=== PATIENT | female | born 1950 | race Caucasian/White ===

== ENCOUNTER 2016-08-07 02:21 | Inpatient (IN) ==
[2016-08-01 12:44] LABS: URINE MICRO REVIEW NEEDED? NO; URINE SOURCE CLEAN CATCH
--- NOTE | 2016-08-01 12:56 | EKG Report ---
Test Performed on : 08/01/2016 12:44:41 PM Test Reason : JOINT CAMP Blood Pressure : / mmHG Vent. Rate : 059 BPM Atrial Rate : 059 BPM P-R Int : 180 ms QRS Dur : 076 ms QT Int : 430 ms P-R-T Axes : 070 055 048 degrees QTc Int : 425 ms Sinus bradycardia. Otherwise normal ECG When compared with ECG of 03-MAR-2016 13:22, Questionable change in QRS axis Nonspecific T wave abnormality has replaced inverted T waves in Inferior leads Confirmed by Vashti HARLEY, Danyel Lerma ([id number]) on 08/02/2016 6:25:57 PM
[2016-08-01 12:59] LABS: MANUAL DIFF NEEDED? NO
[2016-08-01 13:26] LABS: BILIRUBIN URINE NEGATIVE (NEGATIVE); BLOOD URINE NEGATIVE (NEGATIVE); COLOR STRAW; GLUCOSE URINE NEGATIVE (NEGATIVE); LEUKOCYTES URINE NEGATIVE (NEGATIVE); NITRITE URINE NEGATIVE (NEGATIVE); PH URINE 5.5; PROTEIN URINE NEGATIVE (NEGATIVE); SP GRAVITY URINE 1.003; TURBIDITY URINE CLEAR (CLEAR); UR EPITHELIAL CELLS <10 /HPF (<10); URINE BACTERIA NEGATIVE /HPF; URINE RBC <10 /HPF (<10); URINE WBC <10 /HPF (<10); UROBILINOGEN URINE NORMAL (NORMAL)
[2016-08-01 13:37] LABS: BASO% 0.8 % (0.0-0.8); EOS# 0.21 X1000 (0.0-0.7); EOS% 3.3 % (0.0-10.0); HEMATOCRIT 37.7 % (37.0-47.0); HEMOGLOBIN 12.3 g/dL (12.0-16.0); LYMPH# 1.95 X1000 (1.2-3.4); LYMPH% 30.8 % (20.5-51.1); MCH 31.7 PG (27-31); MCHC 32.6 g/dL (33-37); MCV 97.2 FL (81-99); MONO# 0.46 X1000 (0.11-0.59); MONO% 7.3 % (1.7-9.3); NEUT% 57.8 % (42.2-75.2); PLT 245 X1000 (130-400); RBC 3.88 XMIL (4.2-5.4)
[2016-08-01 13:47] LABS: INR 0.96; PTT 23.6 Seconds (22.0-36.0)
[2016-08-01 14:23] LABS: AGAP 13; BUN 10 mg/dL (8-22); CALCIUM 9.2 mg/dL (8.8-10.2); CHLORIDE 100 mmol/L (98-107); COSMO 276; POTASSIUM 3.4 mmol/L (3.5-5.1); SODIUM 139 mmol/L (136-145); TCO2 26 mmol/L (25-35)
[2016-08-07] MEDS ORDERED: NEOSPORIN G.U. IRRIGANT ONE (10:38)
[2016-08-07] MEDS ORDERED: TRANSDERM-SCOP ONE (10:44)
[2016-08-07] MEDS ORDERED: REGLAN ONE (10:44)
[2016-08-07] MEDS ORDERED: LYRICA ONE (10:44)
[2016-08-07] MEDS ORDERED: COLACE ONE (10:44)
[2016-08-07] MEDS ORDERED: PEPCID ONE (10:44)
[2016-08-07] MEDS ORDERED: VANCOMYCIN 1 GM/NS 1 GM/250 ML IVPB ONE (10:45)
[2016-08-07] MEDS ORDERED: LR 1,000 ML ONE (10:45)
[2016-08-07] MEDS ORDERED: CELEBREX ONE (10:45)
[2016-08-07] MEDS ORDERED: TORADOL ONE (11:04)
[2016-08-07] MEDS ORDERED: DURAMORPH ONE (11:04)
[2016-08-07] MEDS ORDERED: SODIUM CHLORIDE 0.9% ONE (11:05)
[2016-08-07] MEDS ORDERED: EXPAREL 1.3% ONE (11:05)
[2016-08-07] MEDS ORDERED: CYKLOKAPRON 1,000 MG/NS 1,000 MG/100 ML IVPB ONE (11:05)
[2016-08-07] MEDS ORDERED: MARCAINE 0.25% PF/EPI 1:200,000 ONE (11:05)
[2016-08-07] MEDS ORDERED: CLAVE SECONDARY SET 11953 ONE (11:05)
[2016-08-07] MEDS ORDERED: VERSED ONE (11:49)
[2016-08-07 12:44] LABS: URINE MICRO REVIEW NEEDED? NO; URINE SOURCE CATH
[2016-08-07 12:52] LABS: BILIRUBIN URINE NEGATIVE (NEGATIVE); BLOOD URINE NEGATIVE (NEGATIVE); COLOR YELLOW; GLUCOSE URINE NEGATIVE (NEGATIVE); LEUKOCYTES URINE NEGATIVE (NEGATIVE); NITRITE URINE NEGATIVE (NEGATIVE); PROTEIN URINE TRACE mg/dL (NEGATIVE); TURBIDITY URINE CLEAR (CLEAR); UROBILINOGEN URINE NORMAL (NORMAL)
[2016-08-07 12:54] LABS: UR EPITHELIAL CELLS <10 /HPF (<10); URINE BACTERIA NEGATIVE /HPF; URINE RBC <10 /HPF (<10); URINE WBC <10 /HPF (<10)
[2016-08-07] MEDS ORDERED: NS 1,000 ML ONE (14:26)
--- NOTE | 2016-08-07 14:54 | HISTORY AND PHYSICAL ---
CHIEF COMPLAINT: Left hip pain. HISTORY OF PRESENT ILLNESS: Ms Tay is a 66-year-old white female with a history of left hip pain for several months. 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 She will be admitted to the hospital today for a left total knee arthroplasty. PAST MEDICAL HISTORY: Cerebrovascular accident, hypertension, dysrhythmia, acid reflux, kidney stones, osteoarthritis and anxiety. SURGICAL HISTORY: Tonsils and adenoids, hysterectomy, right shoulder surgery, bilateral thumb surgery, right groin hernia repair, colon resection and lumbar fusion. FAMILY HISTORY: Noncontributory. SOCIAL HISTORY: She is single, denies using tobacco, denies using alcohol. CURRENT MEDICATIONS: At home are lisinopril 5 mg p.o. daily, Elavil 10 mg p.o. at bedtime, Paxil 20 mg p.o. at bedtime, folic acid 1 mg p.o. daily, Probiotic 1 p.o. daily, aspirin 325 mg p.o. daily, Cholecalciferol 5000 units p.o. daily, Plavix 75 mg p.o. daily, Cardizem-LA 180 mg p.o. daily, Zantac 300 mg p.o. daily. ALLERGIES: To penicillin, codeine and Phenergan. PRIMARY CARE PROVIDER: Dr. Hinkle. REVIEW OF SYSTEMS: Constitutional: The patient denies any head, ears, eyes, nose, or throat problems. Patient denies any current cardiac problems, reports having dysrhythmia in the past. Denies any chest pain, shortness of breath currently. Pulmonary: Patient denies any coughing or wheezing or any chronic lung disease. Gastrointestinal: Patient denies any chronic gastrointestinal problems other than occasional diarrhea since her colon surgery. Genitourinary: Patient denies any problem with urinary tract infection or any other genitourinary problems. Neurological: Patient reports good sensation. Denies any numbness or tingling. Musculoskeletal: Patient reports having left hip pain. PHYSICAL EXAMINATION: GENERAL: The patient is awake, sitting up in bed. She is articulate and able answer questions appropriately. HEENT: Head is normocephalic, atraumatic. Pupils equal, round, reactive to light. Nares patent. Throat without exudate. CARDIAC: S1-S2 auscultated. No murmur, rub or gallop noted. LUNGS: Clear to auscultation bilaterally in all lung gonsalez. GASTROINTESTINAL: Abdomen is soft, nontender, nondistended. Bowel sounds present in all quadrants. GENITOURINARY: Not examined. NEUROLOGICAL: Patient has good sensation to dull touch in all extremities. Cranial nerves 2-12 grossly intact. MUSCULOSKELETAL: Physical examination of the left hip reveals pain with palpation of left hip as well as passive range of motion of the left lower extremity. IMPRESSION: Osteonecrosis left femur. PLAN: Left total hip arthroplasty. The risks, benefits, and alternatives of the surgery were discussed with the patient including risk of anesthesia, bleeding, damage to blood vessels, nerves, tendons, ligaments and other imponderables and the patient agrees to proceed with the surgery at this time. Dictated by LISA Swenson for Jake Gonsalez MD cc: LISA Swenson MD
[2016-08-07] MEDS: DILAUDID ONE ×2 (14:56→15:04)
--- NOTE | 2016-08-07 16:43 | PROGRESS NOTE ---
DATE: 08/07/2016 Ms. Tay is seen for a postop after anterior hip replacement. She is afebrile with stable vital signs. She is alert and oriented. She is moving all lower extremities well. Her bandage is intact with no signs of redness or warmth. There is good capillary refill. Vital signs are stable. cc: Jake Gonsalez MD
[2016-08-07] MEDS: CELEBREX PO SCH (16:49)
[2016-08-07] MEDS: CARDIZEM LA PO SCH (16:49)
[2016-08-07] MEDS: ZANTAC PO SCH (16:51)
[2016-08-07] MEDS: VITAMIN D PO SCH (16:51)
[2016-08-07] MEDS: PLAVIX PO SCH (16:52)
[2016-08-07] MEDS: CULTURELLE PO SCH (16:52)
[2016-08-07] MEDS: PRINIVIL PO SCH (16:52)
[2016-08-07] MEDS: FOLIC ACID PO SCH (16:52)
[2016-08-07] MEDS: COLACE PO SCH ×2 (16:53→20:58)
--- NOTE | 2016-08-07 17:30 | OPERATIVE NOTE ---
PROCEDURE DATE: 08/07/2016 PREOPERATIVE DIAGNOSIS: Avascular necrosis of the hip, left. POSTOPERATIVE DIAGNOSIS: Avascular necrosis of the hip, left. PROCEDURE: Left anterior hip replacement. SURGEON: Brandy Gonsalez MD ACCOUNT MANAGER TRAINEE: LISA Swenson ANESTHESIA: General. COMPLICATION: None. PROCEDURE IN DETAIL: A 66-year-old female presents for left anterior hip replacement. Risks, benefits, and no guarantees were discussed, and the patient is willing to proceed. The patient was taken to the operating room and satisfactory anesthesia was obtained. She was placed on the Emerson table and the left hip prepped and draped in the usual sterile fashion. After ensuring a proper time out, an anterior approach to the left hip was undertaken through roughly an 8-10 cm incision starting a cm distal and lateral to the anterior superior iliac spine. The fascia of the tensor fascia was then incised and blunt dissection along the inner membrane to the tensor fascia undertaken to the anterior hip capsule. Cobra retractors were placed over the superior and inferior aspect of the femoral neck and a capsulotomy incision made. Femoral neck osteotomy was made roughly 10 mm above the lesser trochanter and the femoral head and neck removed. Sequential reaming of the acetabulum was undertaken up to a 51 reamer. A [employer] [place] DuoFix BENOIT coated shell size 52 outer diameter was then impacted in the acetabulum under fluoroscopic guidance in roughly 10-15 degrees of anteversion and 45 degrees of abduction. This was fully seated with secure press-fit fixation. A 20 mm screw was placed in the 12 o'clock position of the cup for additional security. A 0 degree polyethylene liner to accommodate a 36 head was then impacted into the acetabular shell with secure fixation. After securing the acetabular component, the leg was brought into extension and external rotation utilizing the Emerson table to expose the proximal femur. Sequential broaching with the Effcon MXR Corail broach system was then undertaken up to a size 11 stem. This had good axial and rotational stability. A standard neck geometry with a 1.5 head revealed good stability and hoahaoism of leg length. The broach was then removed and a size 11 standard neck Corail was impacted into the proximal femur with secure axial and rotational stability. A 36 ceramic head with a 1.5 mm neck taper was impacted onto this and the hip reduced. Final range of motion revealed no anterior instability in extension or in neutral position. Good hoahaoism of leg length using fluoroscopic guidance was achieved. The wound was then copiously irrigated with irrigant. A Hemovac drain was placed. The joint capsule and skin was injected with Exparel for pain management. The fascia of the tensor was then closed over the drain with a running 0 Vicryl. The subcutaneous with 2-0 Vicryl, and the skin with skin dhiraj. Sterile dressings completed the closure and the patient was recovered from anesthesia and transferred to the recovery room in stable condition. No intraoperative complications were noted. Instrument count and sponge count was correct at the time of closure. cc: Jake Gonsalez MD
[2016-08-07] MEDS: NS 1,000 ML IV SCH (17:42)
[2016-08-07] MEDS ORDERED: CYKLOKAPRON 1,000 MG in NS 100 ML IV ONE (18:00)
[2016-08-07] MEDS ORDERED: DIPRIVAN 1% ONE (18:14)
[2016-08-07] MEDS ORDERED: FENTANYL ONE (18:15)
[2016-08-07] MEDS ORDERED: MORPHINE ONE (18:16)
[2016-08-07] MEDS: NORCO-10 PO PRN (20:58)
[2016-08-07] MEDS: PAXIL PO SCH (20:58)
[2016-08-07] MEDS: ELAVIL PO SCH (20:59)
[2016-08-07] MEDS: PERIDEX MT SCH (21:40)
[2016-08-07] MEDS: MORPHINE IV PRN (22:24)
[2016-08-07] MEDS ORDERED: VANCOMYCIN 1 GM/NS 1 GM/250 ML IVPB IV ONE (23:45)
[2016-08-08] MEDS: MORPHINE IV PRN (03:36)
[2016-08-08] MEDS: NS 1,000 ML IV SCH (05:10)
[2016-08-08 05:47] LABS: HEMATOCRIT 30.3 % (37.0-47.0); HEMOGLOBIN 9.5 g/dL (12.0-16.0)
[2016-08-08 06:02] LABS: AGAP 14; BUN 14 mg/dL (8-22); CALCIUM 8.3 mg/dL (8.8-10.2); CHLORIDE 105 mmol/L (98-107); COSMO 282; POTASSIUM 4.5 mmol/L (3.5-5.1); SODIUM 140 mmol/L (136-145); TCO2 21 mmol/L (25-35)
[2016-08-08] MEDS: XARELTO PO SCH (06:17)
[2016-08-08] MEDS: CARDIZEM LA PO SCH (08:18)
[2016-08-08] MEDS: ZANTAC PO SCH (08:18)
[2016-08-08] MEDS: PRINIVIL PO SCH (08:18)
[2016-08-08] MEDS: VITAMIN D PO SCH (08:18)
[2016-08-08] MEDS: CULTURELLE PO SCH (08:18)
[2016-08-08] MEDS: CELEBREX PO SCH (08:18)
[2016-08-08] MEDS: PLAVIX PO SCH (08:18)
[2016-08-08] MEDS: FOLIC ACID PO SCH (08:18)
[2016-08-08] MEDS: NORCO-10 PO PRN ×4 (08:19→22:34)
[2016-08-08] MEDS: PERIDEX MT SCH ×2 (08:19→19:53)
[2016-08-08] MEDS: COLACE PO SCH ×2 (08:20→19:53)
[2016-08-08] MEDS ORDERED: OFIRMEV 1000 MG/ISOTONIC SOLN 1,000 MG/100 ML BOTTLE ONE (09:16)
[2016-08-08] MEDS ORDERED: DECADRON ONE (09:16)
[2016-08-08] MEDS ORDERED: XYLOCAINE-MPF 2% ONE (09:16)
[2016-08-08] MEDS ORDERED: QUELICIN (DOSE) ONE (09:16)
[2016-08-08] MEDS ORDERED: ZOFRAN ONE (09:16)
[2016-08-08] MEDS ORDERED: LR 1,000 ML ONE (09:16)
[2016-08-08] MEDS: BENADRYL PO PRN (12:24)
[2016-08-08] MEDS: ELAVIL PO SCH (19:53)
[2016-08-08] MEDS: PAXIL PO SCH (19:53)
[2016-08-09] MEDS: COLACE PO SCH ×2 (00:16→08:16)
[2016-08-09] MEDS: PERIDEX MT SCH ×3 (00:16→19:42)
[2016-08-09] MEDS: PAXIL PO SCH ×2 (00:16→19:42)
[2016-08-09] MEDS: ELAVIL PO SCH ×2 (00:16→19:42)
[2016-08-09] MEDS: MORPHINE IV PRN ×2 (02:36→19:41)
[2016-08-09] MEDS: BENADRYL PO PRN ×3 (04:21→19:41)
[2016-08-09] MEDS: NORCO-10 PO PRN ×4 (05:34→23:49)
[2016-08-09] MEDS: XARELTO PO SCH (05:35)
[2016-08-09 05:37] LABS: HEMATOCRIT 28.6 % (37.0-47.0)
[2016-08-09] MEDS: PLAVIX PO SCH (08:15)
[2016-08-09] MEDS: ZANTAC PO SCH (08:15)
[2016-08-09] MEDS: VITAMIN D PO SCH (08:15)
[2016-08-09] MEDS: FOLIC ACID PO SCH (08:15)
[2016-08-09] MEDS: CARDIZEM LA PO SCH (08:15)
[2016-08-09] MEDS: CULTURELLE PO SCH (08:15)
[2016-08-09] MEDS: PRINIVIL PO SCH (08:15)
[2016-08-09] MEDS: CELEBREX PO SCH (08:15)
[2016-08-10] MEDS: ELAVIL PO SCH (01:14)
[2016-08-10] MEDS: COLACE PO SCH ×2 (01:14→08:12)
[2016-08-10] MEDS: PAXIL PO SCH (01:14)
[2016-08-10] MEDS: PERIDEX MT SCH ×2 (01:15→08:12)
[2016-08-10] MEDS: BENADRYL PO PRN ×2 (03:33→09:20)
[2016-08-10] MEDS: NORCO-10 PO PRN ×2 (03:33→08:13)
[2016-08-10] MEDS: XARELTO PO SCH (05:06)
[2016-08-10 05:57] LABS: HEMATOCRIT 29.1 % (37.0-47.0); HEMOGLOBIN 9.2 g/dL (12.0-16.0)
--- NOTE | 2016-08-10 07:26 | DISCHARGE SUMMARY ---
ADMISSION DATE: 08/07/2016 DISCHARGE DATE: 08/10/2016 ADMITTING DIAGNOSIS: Degenerative joint disease of the left hip. ADDITIONAL DIAGNOSES: 1. Hypertension. 2. History of a cerebrovascular accident. 3. Dysrhythmia. 4. Acid reflux. 5. Kidney stones. 6. Anxiety. DISCHARGE DIAGNOSES: 1. Degenerative joint disease of the left hip. 2. Hypertension. 3. History of a cerebrovascular accident. 4. Dysrhythmia. 5. Acid reflux. 6. Kidney stones. 7. Anxiety. ADMITTING HISTORY AND HOSPITAL COURSE: Ms. Tay is a 66-year-old white female with a history of left hip pain. She was admitted to the hospital on 08/07/2016 for a total hip arthroplasty. After her surgery, she remained afebrile. Her vital signs remained stable. There are no signs or symptoms of infection or DVT. Her hemoglobin was 9.2, and her hematocrit is 29.1 today. She is currently ambulating about 250 feet with a front wheel walker. We plan to discharge her today to inpatient rehab facility. DISCHARGE MEDICATIONS: 1. Lisinopril 5 mg p.o. daily. 2. Elavil 10 mg p.o. at bedtime. 3. Paxil 20 mg p.o. at bedtime. 4. Folic acid 1 mg p.o. daily. 5. Probiotic 1 p.o. daily. 6. Vitamin D3 5000 units p.o. daily. 7. Plavix 75 mg p.o. daily. 8. Cardizem-LA 180 mg p.o. daily. 9. Zantac 300 mg p.o. daily. 10. Deputy 10 1-2 p.o. q.4-6 hours p.r.n. for pain. 11. Aspirin 352 mg p.o. daily. DISCHARGE INSTRUCTIONS: Ms. Tay is to be discharged today to a rehab facility , where she will begin her physical therapy regimen. If she has any worsening signs or symptoms , she will need to contact us immediately. I discussed with her that she will be discharged with a pain medication and for anticoagulant we will continue her asa and plavix. She understands the indications and the possible side effects of those. She will need to follow up with Dr. Gonsalez in 10 days, or when she discharges from the rehab facility to have her dhiraj removed. If she stays in the rehab facility for 10 days, the rehab will remove her dhiraj for her. Dictated by LISA Swenson for Jake Gonsalez MD cc: LISA Swenson MD [facility]
[2016-08-10] MEDS: FOLIC ACID PO SCH (08:12)
[2016-08-10] MEDS: CELEBREX PO SCH (08:12)
[2016-08-10] MEDS: CARDIZEM LA PO SCH (08:13)
[2016-08-10] MEDS: CULTURELLE PO SCH (08:13)
[2016-08-10] MEDS: PRINIVIL PO SCH (08:13)
[2016-08-10] MEDS: VITAMIN D PO SCH (08:13)
[2016-08-10] MEDS: PLAVIX PO SCH (08:13)
[2016-08-10] MEDS: ZANTAC PO SCH (08:13)
[2016-08-10 11:24] VITALS: BP 113/46
--- NOTE | 2016-08-10 11:50 | DISCHARGE SUMMARY ---
ADMISSION DATE: 08/07/2016 DISCHARGE DATE: ADDENDUM: DISCHARGE MEDICATIONS: Add Aspirin 325 mg p.o. daily. Discontinue Xarelto from her home medications. For anticoagulant purposes, we will be using the aspirin and Plavix, which the patient was previously on prior to the surgery. Dictated by LISA Swenson for Jake Gonsalez MD cc: LISA Swenson MD
--- NOTE | 2016-08-10 12:42 | Diag Imaging Result Document ---
PROCEDURE NAME: CHEST-2 VIEWS - 08/10/2016 2 VIEWS OF THE CHEST: FINDINGS: There is no evidence of acute cardiac or pulmonary disease. The lungs are much better expanded than on 03/02/2016. IMPRESSION: No evidence of acute disease.
== END 2016-08-10 13:07 ==
LOC: SURHOLD 02:21 → 4N 12:18
PROVIDERS: ADMIT Orthopaedic Surgery Adult Reconstructive Orthopaedic Surgery; ATTEND Orthopaedic Surgery Adult Reconstructive Orthopaedic Surgery